=== PATIENT | female | born 1970 | race Caucasian/White ===

== ENCOUNTER 2018-02-16 05:26 | Day surgery (SDC) | payer OTHER ==
[~2018-02-16] VITALS: Ht 180.3 cm; Wt 147.4 kg
--- NOTE | ~2018-02-16 | O ---
[facility] [place] [address] OPERATIVE REPORT Name: AB BIRMINGHAM Room #: DEP [facility]..#: [id number] Admission: 02/16/18 Attend Phys: Shobha Rose, Discharge: 02/16/18 Date of : 74 Report #: [id number] THIS REPORT FOR: //name// CC: Steffi Rose DATE OF SERVICE: 02/16/2018 PREOPERATIVE DIAGNOSIS: Right carpal tunnel syndrome. POSTOPERATIVE DIAGNOSIS: Right carpal tunnel syndrome. PROCEDURE PERFORMED: Right open carpal tunnel release. SURGEON: Shobha Rose M.D. ANESTHESIA: Local MAC anesthesia. ESTIMATED BLOOD LOSS: Minimal. TOURNIQUET TIME: 12 minutes. COMPLICATIONS: None. CONDITION: Stable. DISPOSITION: Recovery room. INDICATIONS: The patient is a 47-year-old female with the above-mentioned diagnosis. She elects for operative treatment. DESCRIPTION OF PROCEDURE: The risks, benefits, alternatives and complications were discussed, including but not limited to infection, damage to vessels or nerves and incomplete relief of her symptoms. Informed consent was obtained. The correct extremity was identified and labeled by myself after verbal confirmation of the patient as well as visual confirmation and signed informed consent. DESCRIPTION OF PROCEDURE: The patient was brought back to the operating room and placed on the operating table in a supine position. She received preoperative antibiotics. Tourniquet was placed over the padding. The patient's right upper extremity was sterilely prepped and draped in the usual fashion. A final timeout was taken to verify correct patient, operative procedure and operative site, all concurred. The arm was elevated, exsanguinated and tourniquet inflated. After adequate anesthesia was obtained, approximately a total of 5 mL of mixture of 0.25% Marcaine and 1% lidocaine was [address] [address] OPERATIVE REPORT Name: AB BIRMINGHAM Room #: DEP [facility]..#: [id number] Admission: 02/16/18 Attend Phys: Shobha Rose, Discharge: 02/16/18 Date of : 74 Report #: [id number] injected subcutaneously into the dorsum of the incision site. The entire position was done with the aid of 3.5 times loupe magnification. Next, the arm was elevated, exsanguinated and tourniquet inflated. Next, a 2-cm incision was made over the carpal tunnel in line with the ring and long finger web space. Dissection was carried down through the subcutaneous tissue with tenotomy scissors. In the mid portion of the incision, a 15 blade was used to incise a very thick transverse carpal ligament. The very thick transverse carpal ligament transected proximally from the antebrachial fascia in the forearm all the way through the fat in the palm. It was ulnar to the course of the median nerve to decrease postoperative scarring. Right at the mid portion of the carpal tunnel, the median nerve was hyperemic. The release was deemed complete by direct visualization as well as palpation. The wound was thoroughly irrigated. Skin was closed with 4-0 nylon suture. Wound dressed with Adaptic and sterile gauze. She was placed in a bulky dressing. All fingers were pink with brisk capillary refill at the conclusion of the case after deflation of the tourniquet. All sponge and needle counts were correct. The patient was transferred to postoperative recovery room in stable condition. By: [id number] Shobha Rose MD /ericka
[~2018-02-16 05:26] MED LIST: TUMS PO; TYLENOL325 MG PO; ZOLOFT100 MG PO
[2018-02-16 06:44] VITALS: BP 123/51
[2018-02-16 08:59] VITALS: BP 123/51
== END 2018-02-16 09:35 | disposition home or self-care (01) ==
LOC: OR 05:26 → TBA 05:26 → OR 09:35
DX: G56.01 Carpal tunnel syndrome, right upper limb (principal); F41.9 Anxiety disorder, unspecified; F32.9 Major depressive disorder, single episode, unspecified; J45.909 Unspecified asthma, uncomplicated; K21.9 Gastro-esophageal reflux disease without esophagitis; Z88.8 Allergy status to other drugs, medicaments and biological substances; Z79.899 Other long term (current) drug therapy; Z87.891 Personal history of nicotine dependence; Z90.710 Acquired absence of both cervix and uterus; Z90.89 Acquired absence of other organs; Z98.890 Other specified postprocedural states
CPT/HCPCS: 50010; 50101; 50386; 56526; 57091; 57178; 62110; 62850; 70005

== ENCOUNTER 2018-04-02 05:33 | Day surgery (SDC) | payer OTHER ==
[~2018-04-02] VITALS: Ht 177.8 cm; Wt 147.4 kg
--- NOTE | ~2018-04-02 | O ---
[facility] [place] [address] OPERATIVE REPORT Name: AB BIRMINGHAM Room #: DEP [facility] M..#: [id number] Admission: 04/02/18 Attend Phys: Shobha Rose, Discharge: 04/02/18 Date of : 74 Report #: [id number] THIS REPORT FOR: //name// CC: Steffi Rose DATE OF SERVICE: 04/02/2018 PREOPERATIVE DIAGNOSIS: Left carpal tunnel syndrome. POSTOPERATIVE DIAGNOSIS: Left carpal tunnel syndrome. PROCEDURE PERFORMED: Left open carpal tunnel release. SURGEON: Shobha Rose M.D. ANESTHESIA: General mask anesthesia. ESTIMATED BLOOD LOSS: Minimal. TOURNIQUET TIME: 9 minutes. COMPLICATIONS: None. CONDITION: Stable. DISPOSITION: Recovery room. INDICATIONS: The patient is a 47-year-old female with the above-mentioned diagnosis. She elects for operative treatment. The risks, benefits, alternatives and complications were discussed included but were not limited to infection, damage to vessels or nerves, incomplete relief of her symptoms. Informed consent was obtained. The correct extremity was identified and labeled by myself after verbal confirmation of the patient as well as visual confirmation and signed informed consent. DESCRIPTION OF PROCEDURE: The patient was brought back to the operating room, placed on the operating table in supine position. She received preoperative antibiotics. Tourniquet was placed over padding on the patient's left upper extremity. Left upper extremity was sterilely prepped and draped in usual fashion. A final timeout was taken to verify correct patient, operative procedure, operative site, all concurred. The arm was elevated, exsanguinated, tourniquet inflated. The entire procedure was done with the aid of 3.5 loupe magnification. Next, approximately 2 cm incision was made over the carpal tunnel in line with [facility] [place] [address] OPERATIVE REPORT Name: AB BIRMINGHAM Room #: DEP [facility]..#: [id number] Admission: 04/02/18 Attend Phys: Shobha Rose, Discharge: 04/02/18 Date of : 74 Report #: [id number] the ring and long finger web space. Dissection was carried down through subcutaneous tissue with tenotomy scissors. In the mid portion of the incision, a 15 blade was used to incise the very thick transverse carpal ligament. The very thick transverse carpal ligament was transected proximally from the antebrachial fascia in the forearm all the way to the fat in the palm. The incision was ulnar to the course of median nerve to decrease postoperative scarring. The nerve was evaluated. There was a nice return of vascular flow to the nerve after complete release of the thick transverse carpal ligament. The wound was thoroughly irrigated. Skin was closed with 4-0 nylon suture. Wound was dressed with Adaptic and sterile gauze. She was placed in a bulky dressing. All fingers were pink with brisk capillary refill at the conclusion of the case after deflation of the tourniquet. All sponge and needle counts were correct. The patient was transferred to postoperative recovery room in stable condition. By: [id number] Shobha Rose MD /nt
[2018-04-02 10:34] VITALS: BP 118/64
[2018-04-02 12:09] VITALS: BP 118/64
== END 2018-04-02 12:42 | disposition home or self-care (01) ==
LOC: OR 05:33 → TBA 05:33 → OR 07:06
DX: G56.02 Carpal tunnel syndrome, left upper limb (principal); J45.909 Unspecified asthma, uncomplicated; K21.9 Gastro-esophageal reflux disease without esophagitis; F32.9 Major depressive disorder, single episode, unspecified; F41.9 Anxiety disorder, unspecified; Z87.891 Personal history of nicotine dependence; Z98.890 Other specified postprocedural states; Z88.8 Allergy status to other drugs, medicaments and biological substances; Z79.899 Other long term (current) drug therapy
CPT/HCPCS: 50010; 50101; 50386; 56526; 57006; 57091; 62110; 62900; 70005